=== PATIENT | female | born 1995 | race Caucasian/White ===

== ENCOUNTER 2018-12-26 21:25 | Inpatient (IN) | payer OTHER ==
[2018-12-26 21:56] LABS: APPEARANCE,URINE CLEAR; BILIRUBIN,URINE NEGATIVE (NEGATIVE); COLOR,URINE STRAW; GLUCOSE, URINE NEGATIVE (NEGATIVE); KETONES,URINE NEGATIVE (NEGATIVE); LEUKOCYTE ESTERASE,URINE NEGATIVE (NEGATIVE); NITRITE,URINE NEGATIVE (NEGATIVE); PROTEIN,URINE NEGATIVE (NEGATIVE); UROBILINOGEN,URINE NEGATIVE mg/dL (<2.0)
[2018-12-26] MEDS ORDERED: RINGERS SOLUTION,LACTATED 1,000 ML IV ONE (22:05)
[2018-12-26] MEDS ORDERED: RINGERS SOLUTION,LACTATED 1,000 ML IV PRN (22:05)
[2018-12-26 22:19] LABS: URINE AMPHETAMINES SCREEN NEGATIVE; URINE BARBITURATES SCREEN NEGATIVE; URINE BENZODIAZEPINES SCREEN NEGATIVE; URINE COCAINE SCREEN NEGATIVE; URINE MARIJUANA (THC) SCREEN NEGATIVE; URINE METHADONE SCREEN NEGATIVE; URINE PHENCYCLIDINE SCREEN NEGATIVE
[2018-12-26] MEDS ORDERED: OXYTOCIN/NORMAL SALINE 20 UNIT/1,000 ML RTUINJ ONE (22:27)
[2018-12-26] MEDS ORDERED: OXYTOCIN/NORMAL SALINE 20 UNIT/1,000 ML RTUINJ IV PRN (22:27)
--- NOTE | 2018-12-26 22:27 | Admission Physical ---
Datetime Report Generated by CPN: 12/26/2018 22:27 CURRENT ADMISSION Chief Complaint: Suspected Ruptured Membranes Chief Complaint Other: SROM at home at approximately 1930, clear-large amount. Cramping now but no regular ctx. Good FM. Admit Impression : Ruptured Membranes Admit Plan: Admit to Unit ALLERGIES Medication Allergies: Yes Medication Allergies: Cephalosporins (12/26/2018) Latex: No Latex Allergies OBSTETRICAL HISTORY EDC: 01/05/2019 00:00 : 1 Para: 0 Gestational Diabetes: No Rh Sensitization: No Incompetent Cervix: No DANNY: No Infertility: No ART Treatment: No Uterine Anomaly: No IUGR: No Hx Previous C/S: No Macrosomia: No Hx Loss/Stillborn: No PIH: No Hx : No Placenta Previa/Abruption: No Depression/PP Depression: No PTL/PROM: No Post Hemorrhage: No Current Procedures: Ultrasound; NST Obstetrical History Comments: g1 - current SEE RECORDS Alcohol: No Marijuana : No Cocaine: No Other Illicit Drugs: No Cigarettes: Never Smoker. [id number] MEDICAL HISTORY Diabetes: No Blood Transfusion: Yes Pulmonary Disease (Asthma, TB): No Breast Disease: No Hypertension: No Feeder Switchboard Operator Surgery: No Heart Disease: No Hosp/Surgery: Yes Autoimmune Disorder: No Anesthetic Complications: No Kidney Disease: No Abnormal Pap Smear: No Neuro/Epilepsy: No Psychiatric Disorders: No Other Medical Diseases: No Hepatitis/Liver Disease: No Significant Family History: No Varicosities/Phlebitis: No Trauma/Violence : No Thyroid Dysfunction: No Medical History Comments: ovarian cysts rupture requiring blood transfusion 2015 broken arm with surgery 2008 INFECTIOUS HISTORY Gonorrhea: No Genital Herpes: No Chlamydia: No Tuberculosis: No Syphilis: No Hepatitis: No HIV/AIDS Exposure: No Rash or Viral Illness: No HPV: No PHYSICAL EXAM General: Normal HEENT: Normal Neurologic: Normal Thyroid: Normal Heart: Normal Lungs: Normal Breast: Normal Back: Normal Abdomen: Normal Genitourinary Exam: Normal Extremities: Normal DTRs: Normal Pelvic Type: Adequate Vital Signs: Reviewed VAGINAL EXAM Dilatation: 1 Effacement: 25 Station: -2 Contraction Comments: Irregular MEMBRANES Pooling: Positive Membranes: Ruptured Amniotic Fluid Color: Clear FETUS A EGA: 38.4 Monitoring: External US FHR- Baseline: 140 Variability: Absent - Undetectable Accelerations: 15X15 Decelerations: None FHR Category: Category I Presentation: Vertex Admit Comment: G1 at 38.4 wks EGA s/p SROM, clear fluid -Admit to LDR -NPO with ice chips only once in active labor -IVFs, LR @ 125 cc /hr -VS Q 1 hr -GBS negative - O positive blood type -Amnisure positive, pooling. Start Pitocin low dose protocol at 2 milliunits and increase by 2 milliunits every 30 minutes as needed -Labs pending -Routine care. -Hx of asthma with infrequent albuterol use. -Patient desires epidural when needed for pain. -Anticipate PLANS FOR LABOR AND DELIVERY Labor and Delivery: None Pain Management: Epidural Feeding Preference: Formula Circumcision: Yes INFORMED CONSENT Informed Consent Obtained: Vaginal Delivery; Risks, Benefits and Alternatives Discussed Signature: with User ID: Cody : with User ID: Cody
[2018-12-26 22:38] LABS: ABSOLUTE BASOPHILS # (AUTO) 0.1 10^3/uL (0.0-0.2); ABSOLUTE EOSINOPHILS # (AUTO) 0.4 10^3/uL (0.0-0.6); ABSOLUTE LYMPHOCYTES (AUTO) 2.4 10^3/uL (0.5-4.7); ABSOLUTE MONOCYTES (AUTO) 1.4 10^3/uL (0.1-1.4); ABSOLUTE NEUT (AUTO) 9.2 10^3/uL (1.7-8.2); BASOPHILS % (AUTO) 0.7 % (0-2); EOSINOPHILS % (AUTO) 3.1 % (0-6); HEMOGLOBIN 12.7 g/dL (12.0-15.5); LYMPHOCYTES % (AUTO) 17.6 % (13-45); MEAN CORPUSCULAR HEMOGLOBIN 32.1 pg (27.0-33.4); MEAN CORPUSCULAR HGB CONC 34.2 g/dL (32.0-36.0); MEAN CORPUSCULAR VOLUME 94 fl (80-97); MONOCYTES % (AUTO) 10.3 % (3-13); PLATELET COUNT 152 10^3/uL (150-450); RED BLOOD COUNT 3.94 10^6/uL (3.72-5.28); RED CELL DISTRIBUTION WIDTH 12.2 % (11.5-14.0); SEGMENTED NEUTROPHILS % (AUTO) 68.3 % (42-78); TOTAL CELLS COUNTED % (AUTO) 100 %; WHITE BLOOD COUNT 13.5 10^3/uL (4.0-10.5)
[2018-12-27] MEDS ORDERED: FENTANYL CITRATE INJ/PF 100 MCG/2 ML AMPUL ONE (00:44)
[2018-12-27] MEDS ORDERED: PHENYLEPHRINE HCL INJ/PF 10 MG/1 ML SDV ONE (00:44)
[2018-12-27] MEDS ORDERED: EPHEDRINE SULFATE INJ 50 MG/1 ML AMPULE ONE (00:45)
[2018-12-27] MEDS ORDERED: FENTANYL/BUPIVACAINE/NS/PF 300 MCG/150 ML RTUINJ EPI ONE (00:45)
[2018-12-27] MEDS ORDERED: BUPIVACAINE HCL 0.25 % INJ/PF (2.5 MG/1 ML) 30 ML VIAL ONE (00:45)
[2018-12-27] MEDS ORDERED: LIDOCAINE 1% INJ-PF (10 MG/ML) 30 ML SDV ONE (04:11)
[2018-12-27] MEDS ORDERED: OXYTOCIN 10 UNIT/ML VIAL ONE (04:11)
[2018-12-27] MEDS ORDERED: MISOPROSTOL 0.2 MG TABLET ONE (04:11)
[2018-12-27] MEDS ORDERED: OXYTOCIN/NORMAL SALINE 20 UNIT/1,000 ML RTUINJ ONE (04:11)
[2018-12-27] MEDS ORDERED: NA PHOS,M-B/NA PHOS,DI-BA (ADULT) 133 ML ENEMA PR PRN (05:44)
[2018-12-27] MEDS ORDERED: MEASLES,MUMPS&RUBELLA VACC/PF 0.5 ML VIAL SUBCUT PRN (05:44)
[2018-12-27] MEDS ORDERED: OXYTOCIN/NORMAL SALINE 20 UNIT/1,000 ML RTUINJ IV PRN (05:44)
[2018-12-27] MEDS ORDERED: ZOLPIDEM TARTRATE 5 MG TABLET PO PRN (05:44)
[2018-12-27] MEDS ORDERED: PROMETHAZINE HCL 25 MG TABLET PO PRN (05:44)
[2018-12-27] MEDS ORDERED: DIPH/PERTUSS(ACELL)/TETANUS VAC/PF 0.5 ML SYR (>=10YO) IM PRN (05:44)
[2018-12-27] MEDS ORDERED: ACETAMINOPHEN WITH CODEINE #3 TABLET PO PRN (05:44)
[2018-12-27] MEDS ORDERED: DIPHENHYDRAMINE HCL 25 MG CAPSULE PO PRN (05:44)
[2018-12-27] MEDS ORDERED: PROMETHAZINE HCL INJ 25 MG/1 ML VIAL IV PRN (05:44)
[2018-12-27] MEDS ORDERED: PROMETHAZINE HCL 25 MG SUPP.RECT PR PRN (05:44)
[2018-12-27] MEDS ORDERED: MAGNESIUM HYDROXIDE SUSP 30 ML UDCUP PO PRN (05:44)
[2018-12-27] MEDS ORDERED: BENZOCAINE/MENTHOL AEROSOL SPRAY 56 ML TOP PRN (05:44)
[2018-12-27] MEDS ORDERED: DIBUCAINE 1% OINTMENT 56 GM TP PRN (05:44)
[2018-12-27] MEDS ORDERED: PSEUDOEPHEDRINE HCL 30 MG TABLET PO PRN (05:44)
[2018-12-27] MEDS ORDERED: GLYCERIN/WITCH HAZEL LEAF 1 EACH MED..WIPE TP PRN (05:44)
[2018-12-27] MEDS ORDERED: ACETAMINOPHEN 650 MG SUPP.RECT PR PRN (05:44)
--- NOTE | 2018-12-27 05:48 | Warning Signs in Babies ---
VOD Warning Signs Datetime Report Generated by [facility]: 12/27/2018 05:48 VOD#608 -Warning Signs in Babies: Needs to be viewed. (12/26/2018 21:29:Jessica Lainez RN)
[2018-12-27] MEDS ORDERED: IBUPROFEN 800 MG TABLET ONE (06:17)
[2018-12-27] MEDS: IBUPROFEN 800 MG TABLET PO SCH ×3 (06:19→21:09)
--- NOTE | 2018-12-27 06:42 | Delivery Summary ---
Del Sum A-C Datetime Report Generated by CPN: 12/27/2018 06:41 DELIVERY PERSONNEL DELIVERY PERSONNEL: [id number] Delivery Doctor:: Dr. Maida John Labor and Delivery Nurse:: Jessica Lainez RNplanning advisor Nurse:: Alfreda Pedroza RN Interior Designer:: Carly Kaplan RN Dental Biller/CLAIM SPECIALIST: Ariella Quesada, ST MATERNAL INFORMATION Delivery Anesthesia: Epidural Medications After Delivery: Pitocin Drip 20 Units/1000ml NSS Delivery QBL: 100 Maternal Complications: None Provider Comments: Called to patients room full cervical dilation, pushing and +3 station. Deliered after 4-5 contractions with maternal pushing. After delivery of the head, the shoulders and the rest of the body followed easily. Cord clamping delayed for 30 seconds as infant was vigorous. Oral suctioning done. skin to skin with Mother. Both stable condition. LABOR SUMMARY EDC: 01/05/2019 00:00 No. Babies in Womb: 1 Attempted: No Labor Anesthesia: Epidural LABOR INFORMATION Reason for Induction: Not Applicable Onset of Labor: 12/26/2018 21:46 Complete Dilatation: 12/27/2018 04:03 Oxytocin: Augmentation Group B Beta Strep: negative Antibiotics # of Doses: 0 Antibiotics Time of Last Dose: N/A Name of Antibiotic Given: N/A Steroids Given: None Reason Steroids Not Administered: Not Applicable MEMBRANES Membranes Rupture Method: Spontaneous Rupture of Membranes: 12/26/2018 19:45 Length of Rupture (hr): 9.40 Amniotic Fluid Color: Clear Amniotic Fluid Amount: Moderate Amniotic Fluid Odor: Normal STAGES OF LABOR Stage 1 hr: 6 Stage 1 min: 17 Stage 2 hr: 1 Stage 2 min: 6 Stage 3 hr: 0 Stage 3 min: 5 Total Time in Labor hr: 7 Total Time in Labor min: 28 VAGINAL DELIVERY Episiotomy: None Laceration Extension #1: First Degree Other Laceration: Bilateral labial lacerations-first degree Laceration Repair: Yes Laceration Repair Note: Both repaired with 2-0 chromic in a running fashion Sponge Count Correct: Yes Sharps Count Correct: Yes CSECTION DELIVERY Primary Indication: N/A Secondary Indication: N/A CSection Incidence: N/A Labor: N/A Elective: N/A CSection Incision: N/A Uterine Closure: Single-layer closure BABY A INFORMATION Infant Delivery Date/Time: 12/27/2018 05:09 Method of Delivery: Vaginal Born in Route : No : N/A Forceps: N/A Vacuum Extraction: N/A Shoulder Dystocia : No PRESENTATION/POSITION BABY A Presentation: Cephalic Cephalic Presentation: Vertex Vertex Position: Left Occipital Anterior Breech Presentation: N/A PLACENTA INFORMATION BABY A Placenta Delivery Time : 12/27/2018 05:14 Placenta Method of Delivery: Spontaneous Placenta Status: Delivered SCORES BABY A Heart Rate 1 min: >100 bpm Resp Effort 1 min: Good Cry Reflex Irritability 1 min: Cough or Sneeze or Pulls Away Muscle Tone 1 min: Active Motion Color 1 min: Blue/Pale Resuscitation Effort 1 min: Tactile Stimulation SCORE 1 MIN: 8 Heart Rate 5 min: >100 bpm Resp Effort 5 min: Good Cry Reflex Irritability 5 min: Cough or Sneeze or Pulls Away Muscle Tone 5 min: Active Motion Color 5 min: Body [place], Extremities Blue Resuscitation Effort 5 min: Tactile Stimulation SCORE 5 MIN: 9 INFANT INFORMATION BABY A Gestational Age at Delivery: 38.5 Gestational Status: Early Term- 37- 38.6 Weeks Infant Outcome : Liveborn Condition : Stable Infant Sex: Male IDENTIFICATION BABY A Verification Date/Time: 12/27/2018 05:18 ID Band Number: [id number] Mother's Name Verified: Yes RN Verifying Infant: Elio Kaplan, RN Additional Verifying Personnel: J Deligicnate, RN WEIGHT/LENGTH BABY A Birthweight (gm): 3214 Infant Weight (lb): 7 Weight (oz): 1 Length (in): 19.50 Length (cm): 49.53 CORD INFORMATION BABY A No. Cord Vessels: 3 Nuchal Cord : N/A Cord Blood Taken: Yes-For Eval (Mom's Blood Type - or O+) Suction: Mouth; Nose ASSESSMENT BABY A Infant Complications: None Physical Findings at Delivery: Caput Succedaneum Physical Findings- Other: See full nursery medical management specialist Infant Respirations: Appears Normal Skin to Skin: Yes Skin to Skin Time (min): 60 Channel Program Manager/ALS Called : No Care By: Madelin Kaplan RN Transferred To: Remains with Mother BABY B INFORMATION : N/A SIGNATURES Signature: with User ID: Cody : with User ID: Cody
[2018-12-27] MEDS: DOCUSATE SODIUM 100 MG CAPSULE PO SCH ×2 (09:39→18:03)
[2018-12-27] MEDS: PRENATAL VITAMIN W DHA CAPSULE PO SCH (09:39)
[2018-12-27] MEDS: FERROUS SULFATE 325 MG TABLET PO SCH ×2 (09:39→18:03)
[2018-12-27] MEDS: ACETAMINOPHEN WITH CODEINE #3 TABLET PO PRN ×2 (09:40→16:49)
[2018-12-27] MEDS: SENNOSIDES/DOCUSATE 8.6-50 MG 1 EACH TABLET PO SCH (09:40)
[2018-12-27] MEDS: FAMOTIDINE 20 MG TABLET PO SCH ×2 (09:40→21:09)
[2018-12-27] MEDS: FAMOTIDINE INJ/PF 20 MG/2 ML SDV IV SCH (13:58)
[2018-12-28] MEDS: ACETAMINOPHEN WITH CODEINE #3 TABLET PO PRN ×2 (01:30→20:48)
[2018-12-28] MEDS: IBUPROFEN 800 MG TABLET PO SCH ×3 (05:09→22:14)
[2018-12-28 06:48] LABS: HEMATOCRIT 31.6 % (36.0-47.0); HEMOGLOBIN 10.9 g/dL (12.0-15.5); MEAN CORPUSCULAR HEMOGLOBIN 32.5 pg (27.0-33.4); MEAN CORPUSCULAR HGB CONC 34.4 g/dL (32.0-36.0); MEAN CORPUSCULAR VOLUME 94 fl (80-97); PLATELET COUNT 137 10^3/uL (150-450); RED BLOOD COUNT 3.34 10^6/uL (3.72-5.28); RED CELL DISTRIBUTION WIDTH 12.4 % (11.5-14.0)
[2018-12-28] MEDS: FAMOTIDINE 20 MG TABLET PO SCH ×2 (09:37→22:14)
[2018-12-28] MEDS: SENNOSIDES/DOCUSATE 8.6-50 MG 1 EACH TABLET PO SCH (09:37)
[2018-12-28] MEDS: PRENATAL VITAMIN W DHA CAPSULE PO SCH (09:37)
[2018-12-28] MEDS: DOCUSATE SODIUM 100 MG CAPSULE PO SCH ×2 (09:37→17:14)
[2018-12-28] MEDS: FERROUS SULFATE 325 MG TABLET PO SCH ×2 (09:37→17:14)
[2018-12-28] MEDS: FAMOTIDINE INJ/PF 20 MG/2 ML SDV IV SCH (10:57)
--- NOTE | 2018-12-28 14:48 | PDOC PROGRESS REPORT ---
Subjective-OB Progress Note for:: 12/28/18 Subjective: reports bleeding slowing, pain controlled with current meds, denies needs Physical Exam (OB) Vital Signs: Temp Pulse Resp BP Pulse Ox 97.5 F 67 12 111/77 98 12/28/18 07:40 12/28/18 07:40 12/28/18 07:40 12/28/18 07:40 12/28/18 07:40 Intake & Output 12/27/18 12/28/18 12/29/18 06:59 06:59 06:59 Intake Total 800 Balance 800 Weight 79.1 kg - Abdomen Description: Soft Hernia Present: No Fundal Description: Firm, Midline Fundal Height: u/u - u/2 - Abdominal Distension: No distension Tenderness: Nontender - Extremities Lower extremities: Ramona's sign - neg Calf: Normal, Nontender Objective-Diagnostic Laboratory: 12/28/18 06:32 12/28/18 06:32 WBC 13.0 H RBC 3.34 L Hgb 10.9 L Hct 31.6 L MCV 94 MCH 32.5 MCHC 34.4 RDW 12.4 Plt Count 137 L Assessment and Plan(PN) - Assessment and Plan (1) Normal vaginal delivery Is this a current diagnosis for this admission?: Yes - Time Spent with Patient Time with patient: Less than 15 minutes Medications reviewed and adjusted accordingly: Yes - Disposition Anticipated Discharge: Home Within: within 24 hours
[2018-12-29] MEDS: IBUPROFEN 800 MG TABLET PO SCH ×2 (05:46→13:34)
[2018-12-29 08:49] VITALS: BP 118/79
[2018-12-29] MEDS: FAMOTIDINE 20 MG TABLET PO SCH (09:34)
[2018-12-29] MEDS: PRENATAL VITAMIN W DHA CAPSULE PO SCH (09:34)
[2018-12-29] MEDS: DOCUSATE SODIUM 100 MG CAPSULE PO SCH (09:34)
[2018-12-29] MEDS: FERROUS SULFATE 325 MG TABLET PO SCH (09:34)
[2018-12-29] MEDS: SENNOSIDES/DOCUSATE 8.6-50 MG 1 EACH TABLET PO SCH (09:34)
[2018-12-29] MEDS: FAMOTIDINE INJ/PF 20 MG/2 ML SDV IV SCH (11:33)
[2018-12-29] MEDS: ACETAMINOPHEN WITH CODEINE #3 TABLET PO PRN (12:28)
--- NOTE | 2018-12-29 14:45 | PDOC DISCHARGE SUMMARY ---
Impression - Admit/DC Date/PCP Admission Date/Primary Care Provider: 12/26/18 22:01 CORAL CHRISTIE MD Discharge Date: 12/29/18 - Discharge Diagnosis (1) Normal vaginal delivery Is this a current diagnosis for this admission?: Yes (2) Acute blood loss anemia Is this a current diagnosis for this admission?: Yes (3) Obstetric labial laceration, delivered, current hospitalization Is this a current diagnosis for this admission?: Yes - Additional Information Resuscitation Status: Full Code Discharge Diet: As Tolerated, Regular Discharge Activity: Activity As Tolerated, Balance Activity w/Rest Referrals: CORAL CHRISTIE MD [Primary Care Provider] - Prescriptions: Ibuprofen [Motrin 800 mg Tablet] 800 mg PO Q8HP PRN #30 tablet PRN Reason: Docusate Sodium [Colace 100 mg Capsule] 100 mg PO BID #60 capsule Ferrous Sulfate [Feosol 325 mg Tablet] 325 mg PO BID #60 tablet Home Medications: Prenat 115/Iron Fum/Folic/Dss [ 19 Tablet] 1 tab PO DAILY 12/26/18 Docusate Sodium [Colace 100 mg Capsule] 100 mg PO BID #60 capsule 12/29/18 Ferrous Sulfate [Feosol 325 mg Tablet] 325 mg PO BID #60 tablet 12/29/18 Ibuprofen [Motrin 800 mg Tablet] 800 mg PO Q8HP PRN #30 tablet 12/29/18 Results Laboratory Results: WBC 13.0 10^3/uL (4.0-10.5) H 12/28/18 06:32 RBC 3.34 10^6/uL (3.72-5.28) L 12/28/18 06:32 Hgb 10.9 g/dL (12.0-15.5) L 12/28/18 06:32 Hct 31.6 % (36.0-47.0) L 12/28/18 06:32 MCV 94 fl (80-97) 12/28/18 06:32 MCH 32.5 pg (27.0-33.4) 12/28/18 06:32 MCHC 34.4 g/dL (32.0-36.0) 12/28/18 06:32 RDW 12.4 % (11.5-14.0) 12/28/18 06:32 Plt Count 137 10^3/uL (150-450) L 12/28/18 06:32 Lymph % (Auto) 17.6 % (13-45) 12/26/18 22:24 Yates % (Auto) 10.3 % (3-13) 12/26/18 22:24 Eos % (Auto) 3.1 % (0-6) 12/26/18 22:24 Baso % (Auto) 0.7 % (0-2) 12/26/18 22:24 Absolute Neuts (auto) 9.2 10^3/uL (1.7-8.2) H 12/26/18 22:24 Absolute Lymphs (auto) 2.4 10^3/uL (0.5-4.7) 12/26/18 22:24 Absolute Monos (auto) 1.4 10^3/uL (0.1-1.4) 12/26/18 22:24 Absolute Eos (auto) 0.4 10^3/uL (0.0-0.6) 12/26/18 22:24 Absolute Basos (auto) 0.1 10^3/uL (0.0-0.2) 12/26/18 22:24 Seg Neutrophils % 68.3 % (42-78) 12/26/18 22:24 Urine Color STRAW 12/26/18 21:40 Urine Appearance CLEAR 12/26/18 21:40 Urine pH 6.0 (5.0-9.0) 12/26/18 21:40 Ur Specific [place] 1.010 12/26/18 21:40 Urine Protein NEGATIVE mg/dL (NEGATIVE) 12/26/18 21:40 Urine Glucose (UA) NEGATIVE mg/dL (NEGATIVE) 12/26/18 21:40 Urine Ketones NEGATIVE mg/dL (NEGATIVE) 12/26/18 21:40 Urine Blood NEGATIVE (NEGATIVE) 12/26/18 21:40 Urine Nitrite NEGATIVE (NEGATIVE) 12/26/18 21:40 Urine Bilirubin NEGATIVE (NEGATIVE) 12/26/18 21:40 Urine Urobilinogen NEGATIVE mg/dL (<2.0) 12/26/18 21:40 Ur Leukocyte Esterase NEGATIVE (NEGATIVE) 12/26/18 21:40 Urine Ascorbic Acid NEGATIVE (NEGATIVE) 12/26/18 21:40 Membranes Rupture POSITIVE (NEGATIVE) H 12/26/18 21:44 Urine Opiates Screen NEGATIVE 12/26/18 21:40 Urine Methadone Screen NEGATIVE 12/26/18 21:40 Ur Barbiturates Screen NEGATIVE 12/26/18 21:40 Ur Phencyclidine Scrn NEGATIVE 12/26/18 21:40 Ur Amphetamines Screen NEGATIVE 12/26/18 21:40 U Benzodiazepines Scrn NEGATIVE 12/26/18 21:40 Urine Cocaine Screen NEGATIVE 12/26/18 21:40 U Marijuana (THC) Screen NEGATIVE 12/26/18 21:40 RPR NONREACTIVE (NONREACTIVE) 12/26/18 22:24 Blood Type O POSITIVE 12/26/18 22:24 Antibody Screen NEGATIVE 12/26/18 22:24
== END 2018-12-29 15:30 | disposition home or self-care (01) | DRG 806 ==
LOC: LC 21:25 → LR 22:01 → 2S 12-27 08:40
PROVIDERS: ADMIT Obstetrics & Gynecology; ATTEND Obstetrics & Gynecology
PROC: 10E0XZZ Delivery of Products of Conception, External Approach (ICD-10-PCS; principal; 2018-12-27)
PROC: 0UQMXZZ Repair Vulva, External Approach (ICD-10-PCS; 2018-12-27)
DX: O70.0 First degree perineal laceration during delivery (principal); D62 Acute posthemorrhagic anemia; Z37.0 Single live birth; O99.03 Anemia complicating the puerperium; Z28.21 Immunization not carried out because of patient refusal; Z88.1 Allergy status to other antibiotic agents; Z3A.38 38 weeks gestation of pregnancy
CPT/HCPCS: 36415; 80307; 81005; 84112; 85025; 85027; 86592; 86850; 86900; 86901; J2370; J2590; J3010; J3490